=== PATIENT | male | born 1970 | race African-American/Black ===

== ENCOUNTER 2018-07-07 15:34 | Inpatient (IN) | payer MEDICAID ==
[~2018-07-07] VITALS: Ht 182.9 cm; Wt 65.8 kg
[2018-07-07] MEDS ORDERED: SODIUM CHLORIDE 0.9% 1,000 ML IV ONE (16:49)
[2018-07-07 18:21] LABS: BASOPHILS % 0.6 % (0.0-2.0); EOSINOPHILS % 2.4 % (0.0-5.0); HEMATOCRIT. 41.9 % (42.0-52.0); LYMPHOCYTES % 33.8 % (20.0-50.0); MEAN CORPUSCULAR HEMOGLOBIN 30.1 pg (28.0-32.0); MONOCYTES % 13.3 % (2.0-8.0); NEUTROPHILS % 49.9 % (40.0-76.0); PLATELET 167 x1000/uL (130-400); RED BLOOD CELL COUNT 4.66 mill/uL (4.7-6.1); RED CELL DISTRIBUTION WIDTH 13.7 % (11.6-14.6)
[2018-07-07 18:22] LABS: CHLORIDE 108 mEq/L (98-107)
[2018-07-07 18:23] LABS: INR 1.1; PARTIAL THROMBOPLASTIN TIME 26.4 sec (23.4-31.0)
[2018-07-07 18:26] LABS: ETHANOL BLOOD < 10 mg/dL
[2018-07-07] MEDS ORDERED: LORAZEPAM 2MG/ML CPJ IV ONE (19:30)
[2018-07-08] VITALS: BP 127/85
[2018-07-08] MEDS ORDERED: GABA-531 PO (00:29)
[2018-07-08] MEDS ORDERED: CYCL10TA7 PO (00:29)
[2018-07-08] MEDS ORDERED: IBUP-2030 PO (00:30)
[2018-07-08] MEDS ORDERED: MORPHINE SULFATE 4 MG/ML CPJ (NOT FOR IM USE) IV PRN (01:15)
[2018-07-08] MEDS ORDERED: HYDROCODONE/ACETAMINOPHEN 5/325MG TABLET PO PRN (01:15)
[2018-07-08 04:00] VITALS: BP 104/78
[2018-07-08 08:00] VITALS: BP 107/75
[2018-07-08 12:00] VITALS: BP 118/89
[2018-07-08 16:00] VITALS: BP 124/89
[2018-07-08 20:00] VITALS: BP 125/91
[2018-07-09] VITALS: BP 121/87
[2018-07-09 04:00] VITALS: BP 130/80
[2018-07-09 08:00] VITALS: BP 125/90
[2018-07-09 12:00] VITALS: BP 125/86
[2018-07-09] MEDS ORDERED: SODIUM CHLORIDE 0.45% 1,000 ML IV SCH (15:45)
[2018-07-09 16:00] VITALS: BP 126/81
[2018-07-09] MEDS: GUAIFENESIN 600MG ER TABLET PO SCH (16:09)
[2018-07-09 20:00] VITALS: BP 122/91
[2018-07-10] VITALS: BP 132/79
[2018-07-10] MEDS: GUAIFENESIN 600MG ER TABLET PO SCH ×3 (03:45→15:44)
[2018-07-10 04:00] VITALS: BP_SYST 121; BP_SYST 123; BP_DIAS 73; BP_DIAS 75
[2018-07-10 06:38] LABS: CHLORIDE 111 mEq/L (98-107)
[2018-07-10 06:47] LABS: FOLIC ACID (FOLATE) SERUM 19.8 ng/mL (>5.38)
[2018-07-10 06:50] LABS: CREATINE KINASE 301 IU/L (39-308)
[2018-07-10 06:51] LABS: T4 FREE 1.17 ng/dL (0.76-1.46)
[2018-07-10 09:03] LABS: BASOPHILS % 0.6 % (0.0-2.0); EOSINOPHILS % 1.8 % (0.0-5.0); LYMPHOCYTES % 39.5 % (20.0-50.0); MEAN CORPUSCULAR HEMOGLOBIN 29.6 pg (28.0-32.0); MEAN CORPUSCULAR VOLUME 90.9 fL (80.0-94.0); MONOCYTES % 11.2 % (2.0-8.0); NEUTROPHILS % 46.9 % (40.0-76.0); RED BLOOD CELL COUNT 5.06 mill/uL (4.7-6.1); RED CELL DISTRIBUTION WIDTH 13.9 % (11.6-14.6)
[2018-07-10 10:00] VITALS: BP 140/83
[2018-07-10 12:00] VITALS: BP 123/88
[2018-07-10 13:58] LABS: MEAN PLATELET VOLUME 9.6 fl (7.4-10.4)
[2018-07-10 13:59] LABS: PLATELET 161 x1000/uL (130-400)
[2018-07-10 16:00] VITALS: BP 113/84
[2018-07-10 20:00] VITALS: BP 128/98
[2018-07-11] VITALS: BP 145/98
[2018-07-11 04:00] VITALS: BP 116/93
[2018-07-11] MEDS: GUAIFENESIN 600MG ER TABLET PO SCH (05:23)
[2018-07-11 08:00] VITALS: BP 130/89
[2018-07-11 12:00] VITALS: BP 146/85
[2018-07-11 13:46] VITALS: BP 130/89
[2018-07-18 09:06] LABS: AChR BLOCKING ABS SERUM 30 % (0-25)
== END 2018-07-11 14:16 | disposition home or self-care (01) | DRG 48 ==
LOC: ER 15:34 → 6EST 21:55 → ENRESERV 22:29
PROVIDERS: ADMIT Internal Medicine; ATTEND Internal Medicine
DX: G90.8 Other disorders of autonomic nervous system (principal); E87.8 Other disorders of electrolyte and fluid balance, not elsewhere classified; F12.90 Cannabis use, unspecified, uncomplicated; M48.02 Spinal stenosis, cervical region; M50.321 Other cervical disc degeneration at C4-C5 level
CPT/HCPCS: 36415; 71045; 72141; 80048; 82550; 82607; 82746; 83036; 83519; 83880; 84439; 84443; 84481; 84484; 92610; 93005; 93970; 96361; 96374; 97110; 97161; 97167; 99285; C1893; G0482; J2060; J7030

== ENCOUNTER 2020-11-28 06:45 | Inpatient (IN) | payer MEDICAID ==
[~2020-11-28] VITALS: Ht 182.9 cm; Wt 73.1 kg
[~2020-11-28 06:45] MED LIST: APIX2.5T MT; CYCL10TA7 PO; DIGO125T80 PO; FLUT1DIS6 INH; FURO40TA5 MT; GABA-532 PO; IBUP-2030 PO; PRAV20TA57 MT
[2020-11-28] MEDS ORDERED: SODIUM CHLORIDE 0.9% 1,000 ML IV ONE (07:30)
[2020-11-28 08:21] LABS: BASOPHILS % 0.3 % (0.0-2.0); EOSINOPHILS % 1.6 % (0.0-5.0); HEMATOCRIT. 47.8 % (42.0-52.0); LYMPHOCYTES % 31.3 % (20.0-50.0); MEAN CORPUSCULAR HEMOGLOBIN 29.6 pg (28.0-32.0); MEAN CORPUSCULAR VOLUME 88.5 fL (80.0-94.0); MEAN PLATELET VOLUME 8.9 fl (7.4-10.4); MONOCYTES % 11.2 % (2.0-8.0); NEUTROPHILS % 55.6 % (40.0-76.0); PLATELET 174 x1000/uL (130-400); RED CELL DISTRIBUTION WIDTH 14.9 % (11.6-14.6)
[2020-11-28 08:25] LABS: CHLORIDE 107 mEq/L (98-107)
[2020-11-28 08:27] LABS: PROTHROMBIN TIME 11.2 sec (9.6-11.0)
[2020-11-28 08:29] LABS: ETHANOL BLOOD < 10 mg/dL
[2020-11-28] MEDS ORDERED: PROPOFOL 10MG/ML 100ML 100 ML IV SCH (09:00)
[2020-11-28] MEDS ORDERED: ROCURONIUM BROMIDE 10MG/ML VIAL 5ML IV ONE (09:00)
[2020-11-28] MEDS ORDERED: ETOMIDATE 2MG/ML 10ML VIAL IV ONE (09:30)
[2020-11-28 10:29] LABS: BG BASE EXCESS -0.9 mmol/L (-2.0-2.0); BG CARBOXYHEMOGLOBIN 0.1 % (0.5-1.5); BG DEOXYHEMOGLOBIN 4.6 % (0.0-5.0); BG FRACTION INSPIRED OXYGEN 40; BG HCO3 ACT 23.5 mmol/L (22.0-26.0); BG METHEMOGLOBIN 0.1 % (0.0-1.5); BG OXYGEN SATURATION 95.4 % (92.0-98.5); BG OXYHEMOGLOBIN 95.2 % (94.0-97.0); BG PCO2 38.3 mmHg (35.0-45.0); BG PH 7.405 (7.350-7.450); BG PO2 78.2 mmHg (75.0-100.0); BG SAMPLE SITE RIGHT RADIAL; BG TOTAL HEMOGLOBIN 14.9 g/dL (12.0-18.0); BG VENT MODE VENT - AC
[2020-11-28 10:31] LABS: CLARITY URINE CLEAR (CLEAR); COLOR URINE YELLOW (YELLOW); KETONES URINE NEGATIVE (NEGATIVE); LEUKOCYTE ESTERASE URINE NEGATIVE (NEGATIVE); NITRITE URINE NEGATIVE (NEGATIVE); OCCULT BLOOD URINE NEGATIVE (NEGATIVE); PROTEIN URINE 1+ (NEGATIVE); SPECIFIC GRAVITY URINE 1.016 (1.005-1.030); UROBILINOGEN URINE 0.2 E.U./dL (0.2-1.0)
[2020-11-28 10:50] LABS: *BARBITURATES SCREEN URINE NEGATIVE (NEGATIVE); *BENZODIAZEPINES SCREEN URINE NEGATIVE (NEGATIVE); *COCAINE SCREEN URINE NEGATIVE (NEGATIVE); CANNABINOID URINE SCREEN PRESUMTIVE POSITIVE (NEGATIVE); METHADONE URINE SCREEN NEGATIVE (NEGATIVE); OPIATES URINE SCREEN NEGATIVE (NEGATIVE); PHENCYCLIDINE URINE SCREEN NEGATIVE (NEGATIVE)
[2020-11-28 10:53] LABS: *AMPHETAMINES SCREEN URINE NEGATIVE (NEGATIVE)
[2020-11-28] MEDS ORDERED: IPRATROPIUM/ALBUTEROL 0.5-3(2.5)MG/3ML NEB HHN PRN (14:30)
[2020-11-28] MEDS ORDERED: ONDANSETRON HCL 4MG/2ML INJ IV PRN (16:30)
[2020-11-28] MEDS ORDERED: DOCUSATE SODIUM 100MG CAPSULE PO PRN (16:30)
[2020-11-28] MEDS ORDERED: CLONIDINE 0.1MG TABLET PO PRN (16:30)
[2020-11-28] MEDS: PANTOPRAZOLE SODIUM 40 MG/VIAL IV SCH (16:59)
[2020-11-28] MEDS: SODIUM CHLORIDE 0.9% 1,000 ML IV SCH (17:00)
[2020-11-28] MEDS ORDERED: DEXTROSE 50% WATER 50ML SYRINGE IV PRN (17:00)
[2020-11-28] MEDS: BLOOD SUGAR DIAGNOSTIC STRIP TEST SCH ×2 (17:27→22:28)
[2020-11-28] MEDS: CEFEPIME 1,000 MG in DEXTROSE 5% WATER 50 ML IV SCH (17:39)
[2020-11-28] MEDS: ENOXAPARIN 40MG/0.4ML SYR SUBCUT SCH (17:59)
[2020-11-28] MEDS: INSULIN LISPRO 100 UNITS/ML SUBCUT SCH ×2 (18:00→22:28)
[2020-11-28] MEDS: METRONIDAZOLE 500 MG PREMIX 100 ML IV SCH (18:21)
[2020-11-28] MEDS: IPRATROPIUM/ALBUTEROL 0.5-3(2.5)MG/3ML NEB HHN SCH (20:00)
[2020-11-28 23:49] VITALS: BP 127/91
[2020-11-28 23:55] VITALS: BP 119/83
[2020-11-29] VITALS (99 sets, daily range): BP systolic 81–162; BP diastolic 28–114
[2020-11-29] MEDS: BUDESONIDE 0.5MG/2ML NEB HHN SCH ×2 (00:05→08:40)
[2020-11-29] MEDS: PROPOFOL 10MG/ML 100ML 100 ML IV PRN ×5 (01:28→23:08)
[2020-11-29] MEDS ORDERED: *PATIENT'S OWN MEDICATION STORAGE XX SCH (02:30)
[2020-11-29] MEDS ORDERED: PYRI60TA10 PO (02:31)
[2020-11-29] MEDS: METRONIDAZOLE 500 MG PREMIX 100 ML IV SCH ×3 (02:56→21:04)
[2020-11-29] MEDS: SODIUM CHLORIDE 0.9% 1,000 ML IV SCH ×3 (05:10→21:11)
[2020-11-29 05:47] LABS: HEMOGLOBIN. 13.4 g/dL (14.0-18.0); MEAN CORPUSCULAR HEMOGLOBIN 28.7 pg (28.0-32.0); MEAN CORPUSCULAR VOLUME 88.1 fL (80.0-94.0); MEAN PLATELET VOLUME 9.1 fl (7.4-10.4); PLATELET 162 x1000/uL (130-400); RED BLOOD CELL COUNT 4.66 mill/uL (4.7-6.1); RED CELL DISTRIBUTION WIDTH 14.5 % (11.6-14.6)
[2020-11-29 05:48] LABS: CHLORIDE 108 mEq/L (98-107)
[2020-11-29] MEDS: BLOOD SUGAR DIAGNOSTIC STRIP TEST SCH ×4 (06:14→21:05)
[2020-11-29] MEDS: CEFEPIME 1,000 MG in DEXTROSE 5% WATER 50 ML IV SCH ×2 (06:14→17:15)
[2020-11-29] MEDS: INSULIN LISPRO 100 UNITS/ML SUBCUT SCH ×4 (06:14→21:00)
[2020-11-29] MEDS: PANTOPRAZOLE SODIUM 40 MG/VIAL IV SCH (08:08)
[2020-11-29] MEDS: IPRATROPIUM/ALBUTEROL 0.5-3(2.5)MG/3ML NEB HHN SCH ×3 (08:40→20:26)
[2020-11-29] MEDS ORDERED: KCL 20MEQ/100ML PREMIX 100 ML IV NR (09:00)
[2020-11-29 09:14] LABS: BG BASE EXCESS -0.9 mmol/L (-2.0-2.0); BG CARBOXYHEMOGLOBIN 0.3 % (0.5-1.5); BG DEOXYHEMOGLOBIN 1.1 % (0.0-5.0); BG FRACTION INSPIRED OXYGEN 40; BG HCO3 ACT 21.7 mmol/L (22.0-26.0); BG METHEMOGLOBIN 0.3 % (0.0-1.5); BG OXYGEN SATURATION 98.9 % (92.0-98.5); BG OXYHEMOGLOBIN 98.3 % (94.0-97.0); BG PCO2 30.2 mmHg (35.0-45.0); BG PH 7.475 (7.350-7.450); BG PO2 174.3 mmHg (75.0-100.0); BG SAMPLE SITE RIGHT RADIAL; BG TOTAL HEMOGLOBIN 12.9 g/dL (12.0-18.0); BG VENT MODE VENT - AC
[2020-11-29] MEDS: PREDNISONE 20MG TABLET PO SCH (10:47)
[2020-11-29] MEDS: PYRIDOSTIGMINE BROMIDE 60MG TABLET PO SCH ×3 (10:48→21:06)
[2020-11-29 11:10] LABS: PLATELET ESTIMATE NORMAL
[2020-11-29] MEDS: ENOXAPARIN 40MG/0.4ML SYR SUBCUT SCH (17:37)
[2020-11-30] VITALS (75 sets, daily range): BP systolic 87–147; BP diastolic 48–103
[2020-11-30] MEDS: IPRATROPIUM/ALBUTEROL 0.5-3(2.5)MG/3ML NEB HHN SCH ×3 (01:41→13:48)
[2020-11-30] MEDS: METRONIDAZOLE 500 MG PREMIX 100 ML IV SCH ×2 (02:05→09:31)
[2020-11-30] MEDS: PROPOFOL 10MG/ML 100ML 100 ML IV PRN ×3 (04:51→17:33)
[2020-11-30] MEDS: PYRIDOSTIGMINE BROMIDE 60MG TABLET PO SCH ×2 (05:54→13:28)
[2020-11-30] MEDS: BLOOD SUGAR DIAGNOSTIC STRIP TEST SCH ×3 (05:54→16:22)
[2020-11-30] MEDS: CEFEPIME 1,000 MG in DEXTROSE 5% WATER 50 ML IV SCH (05:54)
[2020-11-30] MEDS: PREDNISONE 20MG TABLET PO SCH (06:02)
[2020-11-30] MEDS: INSULIN LISPRO 100 UNITS/ML SUBCUT SCH ×3 (06:03→16:22)
[2020-11-30 07:15] LABS: BG BASE EXCESS -2.3 mmol/L (-2.0-2.0); BG CARBOXYHEMOGLOBIN 0.1 % (0.5-1.5); BG DEOXYHEMOGLOBIN 1.9 % (0.0-5.0); BG HCO3 ACT 21.9 mmol/L (22.0-26.0); BG METHEMOGLOBIN 0.1 % (0.0-1.5); BG OXYGEN SATURATION 98.1 % (92.0-98.5); BG OXYHEMOGLOBIN 97.9 % (94.0-97.0); BG PCO2 36.3 mmHg (35.0-45.0); BG PH 7.399 (7.350-7.450); BG PO2 119.1 mmHg (75.0-100.0); BG SAMPLE SITE RIGHT RADIAL; BG TOTAL HEMOGLOBIN 14.6 g/dL (12.0-18.0); BG VENT MODE VENT - AC
[2020-11-30] MEDS ORDERED: PROPOFOL 10MG/ML 100ML 100 ML IV PRN (08:30)
[2020-11-30] MEDS: PANTOPRAZOLE SODIUM 40 MG/VIAL IV SCH (08:31)
[2020-11-30 09:01] LABS: CHLORIDE 115 mEq/L (98-107)
[2020-11-30 09:04] LABS: BASOPHILS % 0.4 % (0.0-2.0); EOSINOPHILS % 0.3 % (0.0-5.0); HEMATOCRIT. 37.4 % (42.0-52.0); HEMOGLOBIN. 12.3 g/dL (14.0-18.0); LYMPHOCYTES % 12.1 % (20.0-50.0); MEAN CORPUSCULAR HEMOGLOBIN 29.6 pg (28.0-32.0); MEAN CORPUSCULAR VOLUME 89.8 fL (80.0-94.0); MEAN PLATELET VOLUME 9.4 fl (7.4-10.4); MONOCYTES % 8.9 % (2.0-8.0); NEUTROPHILS % 78.3 % (40.0-76.0); PLATELET 135 x1000/uL (130-400); RED BLOOD CELL COUNT 4.17 mill/uL (4.7-6.1); RED CELL DISTRIBUTION WIDTH 14.9 % (11.6-14.6)
[2020-11-30 09:12] LABS: PHOSPHORUS 2.5 mg/dL (2.5-4.9)
== END 2020-11-30 18:00 | disposition short-term general hospital (02) | DRG 133 ==
LOC: ER 07:06 → MICUSO 11:07 → ENRESERV 21:36
PROVIDERS: ADMIT Internal Medicine; ATTEND Internal Medicine
PROC: 5A1945Z Respiratory Ventilation, 24-96 Consecutive Hours (ICD-10-PCS; principal; 2020-11-28)
PROC: 0BH17EZ Insertion of Endotracheal Airway into Trachea, Via Natural or Artificial Opening (ICD-10-PCS; 2020-11-28)
DX: J96.02 Acute respiratory failure with hypercapnia (principal); J69.0 Pneumonitis due to inhalation of food and vomit; G70.01 Myasthenia gravis with (acute) exacerbation; E87.5 Hyperkalemia; R13.10 Dysphagia, unspecified; Z78.1 Physical restraint status; D64.9 Anemia, unspecified; E87.6 Hypokalemia; D72.821 Monocytosis (symptomatic); D18.03 Hemangioma of intra-abdominal structures; Z20.822 Contact with and (suspected) exposure to COVID-19; R80.9 Proteinuria, unspecified; R74.01 Elevation of levels of liver transaminase levels; Z79.899 Other long term (current) drug therapy; Z79.84 Long term (current) use of oral hypoglycemic drugs; Z59.0 Homelessness
CPT/HCPCS: 36415; 36600; 71045; 80048; 80053; 80162; 80305; 80320; 81003; 82375; 82805; 82962; 83036; 83735; 84100; 84478; 85025; 87070; 87426; 93005; 94002; 94003; 94640; 99291; C9113; J0692; J1650; J2704; J3480; J3490; J7030; J7040; J7060; J7512; J7626; A4315; G0480